=== PATIENT | male | born 1995 | race Two or more races ===

== ENCOUNTER 2020-12-31 13:19 | Emergency (ER) | payer OTHER ==
[~2020-12-31] VITALS: Ht 172.7 cm; Wt 90.7 kg
[2020-12-31] MEDS ORDERED: ACETAMINOPHEN 500 MG TAB PO ONE (14:15)
[2020-12-31] MEDS ORDERED: SODIUM CHLORIDE 0.9% 1,000 ML IV ONE (14:15)
[2020-12-31] MEDS ORDERED: CLINDAMYCIN 600MG IV 50 ML IV ONE (14:30)
[2020-12-31] MEDS ORDERED: cefTRIAXone 1GM/50ML D5W 50 ML IV ONE (14:30)
[2020-12-31] MEDS ORDERED: ONDANSETRON HCL 4 MG/2 ML VIAL IV ONE (14:30)
[2020-12-31 14:58] LABS: Basophils # (auto) 0.1 10 ^3/uL (0-0.2); Basophils % (auto) 0.5 % (0.0-2.0); Eosinophils # (auto) 0.1 10 ^3/uL (0-0.8); Eosinophils % (auto) 0.4 % (0.0-7.0); Hematocrit 38.8 % (41.0-53.0); Hemoglobin 14.1 g/dL (13.5-17.5); Lymphocytes # (auto) 0.5 10 ^3/uL (0.4-5.4); Lymphocytes % (auto) 3.4 % (10.0-50.0); Mean Corpuscular Hemoglobin 30.1 pg (28.0-32.0); Mean Corpuscular Hgb Conc. 36.3 g/dL (32.0-36.0); Mean Corpuscular Volume 82.9 fL (80.0-100.0); Monocytes # (auto) 0.9 10 ^3/uL (0-1.3); Monocytes % (auto) 5.7 % (0.0-12.0); Neutrophils # (auto) 14.1 10 ^3/uL (1.6-8.6); Platelet Count (auto) 287 10^3/uL (140-450); Red Blood Cells 4.68 10^6/uL (4.5-5.90); White Blood Cell 15.7 10^3/uL (4.4-10.8)
[2020-12-31 15:26] LABS: Albumin 3.7 g/dL (3.4-5.0); BUN/Creatinine Ratio 12.7; Calcium 8.8 mg/dL (8.5-10.1); Potassium 4.1 mmol/L (3.5-5.1)
[2020-12-31 15:29] LABS: Bilirubin, Total 0.3 mg/dL (0.2-1.0); Total Protein 7.7 g/dL (6.4-8.2)
[2020-12-31 16:13] VITALS: BP 108/69
== END 2020-12-31 16:36 | disposition home or self-care (01) ==
LOC: ER 13:19
DX: L02.31 Cutaneous abscess of buttock (principal)
CPT/HCPCS: 36415; 80053; 83605; 85025; 85049; 96365; 96368; 96375; 99285; J0696; J2405; J3490; J7030